=== PATIENT | male | born 1960 | race Caucasian/White ===

== ENCOUNTER → 2017-08-26 | Outpatient (CLI) | payer BC ==
[~2017-08-26] MED LIST: IOPAMIDOL 370 MG/ML 200 ML INFUS..BTL INJ ONE; SODIUM CHLORIDE 0.9% 50ML 50 ML ONE
[2017-08-26 12:44] LABS: BLOOD UREA NITROGEN 19 mg/dL (7-26); BUN/CREATININE RATIO 25 (6-25); CREATININE, SERUM 0.77 mg/dL (0.72-1.25); EST GLOMERULAR FILTRATION RATE > 60 ML/MIN (60-)
--- NOTE | 2017-08-26 14:36 | Diagnostic Imaging Report ---
EXAM: CT Abdomen and Pelvis WITH contrast INDICATION: Elevated lipase. Upper abdominal pain. Constipation and fatigue. COMPARISON: None. TECHNIQUE: Abdomen and pelvis were scanned utilizing a multidetector helical scanner from the lung base to the pubic symphysis after administration of IV contrast. Coronal and sagittal reformations were obtained. Routine protocol was performed. Scan was performed when during portal venous phase. IV CONTRAST: 100 mL of Omnipaque 300 ORAL CONTRAST: Water RADIATION DOSE: Total DLP: 657.51 mGy*cm Estimated effective dose: (DLP x 0.015 x size factor) mSv COMPLICATIONS: None FINDINGS: LINES and TUBES: None. LOWER THORAX: Unremarkable HEPATOBILIARY: There are small low-attenuation lesions scattered throughout the hepatic parenchyma; for instance 4A posteriorly measuring 1.9 cm on image 15 series 2. An ill-defined lesion is present in segment 5 measuring 2.2 cm on image 23 series 2. A segment in the inferior aspect of segment 6 measures 1.8 cm on image 34 series 2. These are most consistent with metastasis. No biliary ductal dilation. GALLBLADDER: Cholelithiasis. SPLEEN: Patchy low-attenuation in the spleen may reflect tumor invasion or infarct. PANCREAS: There is an ill-defined mass arising from the pancreatic tail estimated at 6.7 x 6.2 cm in maximum AP and transverse dimensions on image 26 series 2; this lesion abuts and possibly invades the splenic hilum as seen on image 26 series 2. It measures 7.6 cm in length on the sagittal image 79. ADRENALS: No right adrenal nodules. There is tumor abutting the lateral aspect of the left adrenal gland. KIDNEYS/URETERS: Kidneys enhance symmetrically. No hydronephrosis. No cystic or solid mass lesions. No stones.. GI TRACT: No abnormal distention, wall thickening, or evidence of bowel obstruction. PELVIC ORGANS/BLADDER: Unremarkable. LYMPH NODES: There is retroperitoneal lymphadenopathy; for instance, a lymph node mass abutting the left aspect of the infrarenal abdominal aorta measures 2.8 cm in maximal dimension on image 36 series 2. A lymph node posterior to the pancreatic tail and just lateral to the left jose alfredo of the diaphragm measures 2.2 x 1.8 cm on image 33 series 2. A lymph node anterior to the common hepatic artery measures 1.9 x 1.3 cm on image 23. A left periaortic lymph node measures 1.8 cm in short axis on image 30. Mildly enlarged periportal and aortocaval lymph nodes; lymph node measures 1.4 cm in short axis on image 26 series 2. Mildly prominent gastrohepatic ligament lymph nodes. VESSELS: The splenic vein is occluded, with extensive collateral circulation about the stomach and spleen. Extensive atherosclerotic calcifications of the aorta and iliac arteries without aneurysmal dilatation. PERITONEUM / RETROPERITONEUM: No free air or fluid. BONES: Unremarkable. SOFT TISSUES: Unremarkable. IMPRESSION: 1. Constellation of findings consistent with stage IV pancreatic cancer with direct extension and invasion of the spleen, hepatic metastasis, and extensive upper abdominal lymphadenopathy. Probable invasion of the left adrenal gland. 2. Splenic vein thrombosis. 3. Cholelithiasis. 4. Discussed with Lori Nugent PA-C with Dr. Murphy office at 2:30 PM on 08/26/2017. Signed by: Dr. Rodríguez Flor M.D. on 08/26/2017 2:32 PM
== END ==
LOC: CT 11:50
PROVIDERS: ATTEND Family Medicine
DX: R74.8 Abnormal levels of other serum enzymes (principal); R10.10 Upper abdominal pain, unspecified; R63.4 Abnormal weight loss
CPT/HCPCS: 36415; 74177; 82565; 84520; Q9967